=== PATIENT | female | born 1980 | race Two or more races ===

== ENCOUNTER 2020-11-22 10:52 | Observation (INO) | payer SELFPAY ==
[2020-11-22] VITALS (14 sets, daily range): BP systolic 84–130; BP diastolic 55–75
--- NOTE | 2020-11-22 10:35 | NUR ---
Admit to 382 per ambulance. Patient came from [facility] ER. Pt was 7 weeks with spotting and cramping x 1 week. Pain in abdomen much stronger at 6 am so she went to [facility] ER. US done and discovered possible eptopic in L side. Saline locks x2 present on admit. R wrist and L AC. Lr started in R side. Dr Rai here and talks to patient consents signed for surgery
--- NOTE | 2020-11-22 11:05 | PDOC ---
GENERAL General: 40yrs old lady 5weeks seen in office earlier came into [facility] with lower abdominal pain. Has possible Ectopic . ASSESSMENT & PLAN A&P Vital signs stable. C/O lot of abdominal Pain. test positive. Sonogram shows mass in left side large amount of fluid in peritoneum. Abdomen quite tender.Has Vaginal Bleeding. Justifications for Admission Other Justification LISA MONTOYA MD Nov 22, 2020 11:05
[2020-11-22] MEDS ORDERED: 0.9 % SODIUM CHLORIDE 10 ML DISP.SYRIN. IV PRN (11:15)
[2020-11-22] MEDS ORDERED: NALOXONE 0.4 MG/ML VIAL. IV PRN (11:15)
[2020-11-22] MEDS ORDERED: IV RINGERS,LACTATED 1000ML 1,000 ML IV SCH ×2 (11:30→11:45)
[2020-11-22] MEDS ORDERED: ceFAZolin SODIUM IV Push 1 GM VIAL. IVP ONE ×2 (11:30→12:00)
[2020-11-22] MEDS ORDERED: fentaNYL PF VIAL 100 MCG/2 ML VIAL IVP PRN ×2 (11:45)
[2020-11-22] MEDS ORDERED: PROCHLORPERAZINE 10 MG/2 ML VIAL. IVP PRN (11:45)
[2020-11-22] MEDS ORDERED: IV NORMAL SALINE 1000ML BAG 1,000 ML IV SCH (12:00)
[2020-11-22] MEDS ORDERED: ROCURONIUM 50 MG/5 ML VIAL. ONE (12:06)
--- NOTE | 2020-11-22 12:07 | HP ---
HISTORY OF PRESENT ILLNESS: This patient is a 40-year-old female who is a 4, para 2, history of one miscarriage and comes in to [facility] with a history of having lower abdominal pain, has a positive test, has been having some vaginal bleeding, which started just two days and was seen at the emergency room at [facility], was transferred to [facility] for possible ectopic . The patient is in lot abdominal pain and pelvic pain at this time and also has vaginal bleeding. PHYSICAL EXAMINATION: VITAL SIGNS: Stable. HEENT: Within normal limits. LUNGS: Clear. HEART: Regular sinus rhythm. PELVIC: External genitalia is normal. Cervical os is closed on bimanual exam. Both adnexal areas are tender. Sonogram has been done, which shows possible adnexal mass on the left side ovary. IMPRESSION: 4, possible ectopic , possible ruptured corpus luteum cyst. PLAN: Laparotomy and possible left-sided salpingectomy. The details of the surgery has been explained to the patient. She is willing for the operation at the present time. SHARON DR: Valencia TID: [id number]
[2020-11-22] MEDS ORDERED: fentaNYL PF VIAL 100 MCG/2 ML VIAL ONE (12:16)
[2020-11-22] MEDS ORDERED: FAMOTIDINE 20 MG/2 ML VIAL ONE (12:21)
[2020-11-22] MEDS ORDERED: ONDANSETRON PF 4 MG/2 ML VIAL. ONE (12:21)
[2020-11-22] MEDS ORDERED: DEXAMETHASONE SOD PHOS 4 MG/ML VIAL ONE (12:21)
--- NOTE | 2020-11-22 13:20 | PDOC ---
GENERAL General: Under GA Laparotomy Left side Salpingectomy done VITAL SIGNS Vital Signs/I&O: Vital Signs Date Time Temp Pulse Resp B/P (MAP) Pulse Ox O2 Delivery O2 Flow Rate FiO2 11/22/20 11:55 99.4 85 20 117/72 (87) 100 99.4 ALLERGIES Allergies: Allergies Coded Allergies Type Severity Reaction Last Updated Verified No Known Drug Allergies 11/22/20 No ASSESSMENT & PLAN A&P Patient had Ruptured Left side Tubal . Belly full of Blood. Laparotomy and Left side Salpingectomy done. EBL 800cc. Justifications for Admission Other Justification LISA MONTOYA MD Nov 22, 2020 13:20
[2020-11-22] MEDS ORDERED: SEVOFLURANE 61 TO 120 MINUTES. IH ONE (13:22)
[2020-11-22] MEDS ORDERED: PROPOFOL 10 MG/ML (20ML) VIAL. IV ONE (13:22)
[2020-11-22] MEDS ORDERED: LIDOCAINE 2% PF 5 ML VIAL. ONE (13:22)
[2020-11-22] MEDS ORDERED: MORPHINE SULFATE 2 MG/ML VIAL. ONE (13:33)
[2020-11-22] MEDS: MORPHINE SULFATE 2 MG/ML VIAL. IVP PRN ×2 (13:36→13:49)
[2020-11-22] MEDS ORDERED: HYDROmorphone 2 MG/ML VIAL ONE (13:45)
[2020-11-22] MEDS: HYDROmorphone 2 MG/ML VIAL IVP PRN ×3 (13:49→14:21)
[2020-11-22 13:58] LABS: HEMOGLOBIN 7.3 g/dL (12.0-15.5)
[2020-11-22] MEDS ORDERED: PROCHLORPERAZINE 10 MG/2 ML VIAL. ONE (14:13)
--- NOTE | 2020-11-22 14:17 | OP ---
DATE OF SURGERY: 11/22/2020 PREOPERATIVE DIAGNOSIS: Pelvic pain, possible ectopic . POSTOPERATIVE DIAGNOSES: 1. Pelvic pain, possible ectopic . 2. Left side ruptured tubal . OPERATIONS PERFORMED: Laparotomy, evacuation of the blood clots and left side salpingectomy. OPERATIVE PROCEDURE: The patient was taken to the operating room. Under general anesthesia, she was placed in the dorsal supine position. Swain catheter introduced in the bladder for continuous bladder drainage. Lower abdomen is prepped and draped in the usual manner. Pfannenstiel incision was made. The abdomen opened in layers and the peritoneal cavity was filled with blood and clots. All the evacuation of the clots was done and further exploration of the abdomen revealed it is a left side tubal , ruptured and leaking blood. The infundibulopelvic ligament on the left side is ligated with Kal clamps and thus the left side tube along with little ovary is excised and the pedicles are doubly ligated with 2-0 chromic catgut sutures and abdomen was rinsed with about 500 mL of normal saline and all the clots were removed. The right side tube and ovary appears normal and after this, abdomen closed in layers using continuous 0 chromic catgut sutures for the peritoneum, the muscle, the fascia and 3-0 plain continuous sutures applied for subcutaneous tissue and 3-0 Vicryl subcutaneous sutures were placed. A pressure dressing is given. The patient sent to the recovery room in good condition. No complications encountered at the time of the procedure. Estimated blood loss 800 mL. Her hemoglobin preop was 8. We will check her hemoglobin in the recovery room and may give her blood transfusion if needed. NICHOLE/DAISHA/LOIS DR: Valencia TID: [id number]
[2020-11-22] MEDS ORDERED: MORPHINE SULFATE 2 MG/ML VIAL. IV PRN (14:30)
--- NOTE | 2020-11-22 14:30 | NUR ---
Recd patient post op. sleepy but easily to wake. Incision dry and intact. IV infusing
[2020-11-22] MEDS: oxyCODONE/APAP 5/325 1 TAB TABLET PO PRN (19:52)
[2020-11-23 01:43] VITALS: BP 85/52
[2020-11-23] MEDS: oxyCODONE/APAP 5/325 1 TAB TABLET PO PRN (05:26)
--- NOTE | 2020-11-23 05:28 | PDOC ---
GENERAL General: Patient c/o Pelvic Pain. Abdomen soft. VITAL SIGNS Vital Signs/I&O: Vital Signs Date Time Temp Pulse Resp B/P (MAP) Pulse Ox O2 Delivery O2 Flow Rate FiO2 11/23/20 01:43 98.5 70 18 85/52 (63) 98.5 11/22/20 20:38 Room Air 11/22/20 20:13 99 11/22/20 13:51 6.0 I & O 11/22/20 11/22/20 11/23/20 15:00 23:00 07:00 Intake Total 1200 ml 1410 ml Output Total 800 ml 260 ml Balance 400 ml 1150 ml ALLERGIES Allergies: Allergies Coded Allergies Type Severity Reaction Last Updated Verified No Known Drug Allergies 11/22/20 No MEDS Medications: Current Medications Medications (Trade) Dose Ordered Sig/Edith Route PRN Reason Start Time Stop Time Status Last Admin Dose Admin Morphine Sulfate (Morphine Sulfate) 1 mg PRN Q10MIN PRN IVP SEVERE PAIN 7-10 11/22/20 11:45 11/22/20 21:00 DC 11/22/20 13:49 Hydromorphone HCl (Dilaudid) 0.5 mg PRN Q10MIN PRN IVP SEVERE PAIN 7-10, 2nd CHOICE 11/22/20 11:45 11/22/20 21:00 DC 11/22/20 14:21 Prochlorperazine Edisylate (Compazine) 5 mg PACU PRN PRN IVP NAUSEA, MRX1 11/22/20 11:45 11/22/20 21:00 DC 11/22/20 14:20 Oxycodone/ Acetaminophen (Percocet 5/325) 2 tab PRN Q4HRS PRN PO PAIN 11/22/20 14:30 11/22/20 19:52 LAB Lab: Laboratory Tests Test 11/22/20 13:45 Hemoglobin 7.3 g/dL (12.0-15.5) L Hematocrit 22.0 % (36.0-47.0) L Mean Corpuscular Hemoglobin Concent 33 g/dL (31-37) Laboratory Tests 11/22/20 13:45 ASSESSMENT & PLAN A&P Explained to Patient about Surgery. Vital signs stable. Doing ok. Justifications for Admission Other Justification LISA MONTOYA MD Nov 23, 2020 05:28
[2020-11-23 05:29] VITALS: BP 85/53
[2020-11-23 06:56] LABS: HEMATOCRIT 23.6 % (36.0-47.0); HEMOGLOBIN 8.1 g/dL (12.0-15.5)
[2020-11-23 11:52] VITALS: BP 82/51
[2020-11-23] MEDS ORDERED: IBUPROFEN 400 MG TABLET. PO PRN (12:15)
[2020-11-23 16:25] VITALS: BP 85/54
[2020-11-23 18:14] VITALS: BP 87/57
[2020-11-23 21:40] VITALS: BP 84/57
--- NOTE | 2020-11-23 22:10 | NUR ---
Pt discharge instructions given by Nellie Yuan RN, went back over instructions with pt, pt understands completely. Pt is excited to get home to her kids and dog. Pt wheeled down to ER to met . Pt in stable condition and does not have any pain at this time.
--- NOTE | 2020-11-24 18:06 | PATHOLOGY ---
[facility] Accession Number: [id number] . 01 Material submitted: . fallopian tube - LEFT FALLOPIAN TUBE WITH RUPTURED ECTOPIC. Modifiers: left . 01 Clinical history: . ECTOPIC EXPLORATORY LAPAROTOMY WITH LEFT SALPINGECTOMY . 02 Diagnosis: Segments (2) of fallopian tube, left salpingectomy: - Ectopic tubal , ruptured. - Hematosalpinx, focal. (JPM:violetta; 11/24/2020) MBR 11/24/2020 1408 Local . 02 Electronically signed: . Arden Mondragon MD, Pathologist NPI- [id number] . 01 Gross description: . Received in formalin labeled "[place], left fallopian tube with ruptured ectopic" is a delacruz-brown fallopian tube received in 2 pieces. The first piece measures 2.3 cm in length and 0.8 cm in diameter and displays a fimbriated end. This piece is sectioned and submitted entirely in cassette A1. The second piece measures 5.4 cm in length and ranges from 0.6-1.7 cm in diameter and displays an exposed/ruptured area at one aspect with an attached portion of red-brown clotted blood measuring 5.1 x 3.8 x 3.2 cm. Upon sectioning, the clotted blood material displays focal delacruz-white areas without definitive placental tissue or tissue. The fallopian tube is sectioned to reveal a lumen that ranges from pinpoint to slightly dilated adjacent to the clotted blood material. Wheel Roller sections of this piece are submitted in cassettes A2-A5. ([facility]; 11/23/2020) SYC/C 11/23/2020 1751 Local . 02 Pathologist provided ICD-10: O00.90, N83.6 . 02 CPT . 698151 Specimen Comment: A courtesy copy of this report has been sent to [phone] Specimen Comment: Report sent to Performed at: [address], [place] [id number] MD Finn Brown MD Phone: [phone] Performed at: 02 [facility] [address] [place], [place] [id number] MD Arden Mondragon MD Phone: [phone]
== END 2020-11-23 22:10 | disposition home or self-care (01) ==
LOC: INTOOBSV 10:52 → 3 SO LND 10:52
PROVIDERS: ADMIT Obstetrics & Gynecology; ATTEND Obstetrics & Gynecology
DX: O09.521 Supervision of elderly multigravida, first trimester (principal); O00.102 Left tubal pregnancy without intrauterine pregnancy; Z3A.01 Less than 8 weeks gestation of pregnancy
CPT/HCPCS: 36415; 58700; 85014; 85018; 86850; 86900; 86901; 86920; G0378; G0379; J0690; J0780; J1100; J1170; J2270; J2405; J2704; J3010; J3490; A4223; A4314; A4930; A6253; A6255; A6402